=== PATIENT | female | born 1950 | race Caucasian/White ===

== ENCOUNTER 2019-11-27 11:01 | Outpatient (CLI) | payer MEDICARE, SELFPAY ==
--- NOTE | ~2019-11-27 | MM_ITS ---
EXAMINATION: MM screening [facility] BI w kareem HISTORY: Screening mammogram TECHNIQUE: Craniocaudal and mediolateral oblique 3-D tomosynthesis images were obtained and synthetic 2-D images were generated. CAD analysis was submitted and interpreted. COMPARISON: Comparison to multiple prior studies sequentially, with oldest reviewed study dated 08/02. BREAST PARENCHYMAL COMPOSITION: There are scattered areas of fibroglandular density. FINDINGS: There is no evidence of suspicious mass, calcification, or architectural distortion to sugg est malignancy in either breast. There has been no suspicious interval change. IMPRESSION: 1. No mammographic evidence of malignancy. 2. Recommend routine screening mammography in one year. BI-RADS Category 1: Negative Reviewed, dictated and finalized at location A. IFIED GENETIC COUNSELOR
== END 2019-11-27 11:02 | disposition home or self-care (01) ==
PROVIDERS: PCP Internal Medicine; Visit Provider Internal Medicine
DX: Z12.31 Encounter for screening mammogram for malignant neoplasm of breast (principal)
CPT/HCPCS: 77063; 77067

== ENCOUNTER 2019-11-30 08:38 | Outpatient (CLI) | payer MEDICARE, SELFPAY ==
[2019-11-30 09:10] LABS: Alanine Aminotransferase 22 U/L (4-35); Albumin Level 4.8 g/dL (3.5-5.1); Alkaline Phosphatase 116 U/L (38-126); Aspartate Amino Transferase 29 U/L (14-36); Bilirubin,Total 0.4 mg/dL (0.2-1.3); Blood Urea Nitrogen 16 mg/dL (7-17); Calcium 9.9 mg/dL (8.4-10.2); Carbon Dioxide 30 mmol/L (22-30); Chloride 90 mmol/L (98-107); Cholesterol 146 mg/dL (0-200); Estimated Glomerular Filt Rate > 60; Glucose 104 mg/dL (65-105); HDL Direct 51 mg/dL; Potassium 4.1 mmol/L (3.4-5.0); Sodium 134 mmol/L (137-145); Triglycerides 156 mg/dL (<150)
[2019-11-30 09:20] LABS: LDL Cholesterol Direct 68 mg/dL
== END 2019-11-30 08:39 | disposition home or self-care (01) ==
PROVIDERS: PCP Internal Medicine; Visit Provider Internal Medicine
DX: Z51.81 Encounter for therapeutic drug level monitoring (principal); E78.2 Mixed hyperlipidemia; I10 Essential (primary) hypertension
CPT/HCPCS: 36415; 80053; 80061

== ENCOUNTER 2020-05-27 08:35 | Outpatient (CLI) | payer MEDICARE, SELFPAY ==
[2020-05-27 09:39] LABS: Alanine Aminotransferase 15 U/L (4-35); Albumin Level 4.7 g/dL (3.5-5.1); Alkaline Phosphatase 108 U/L (38-126); Anion Gap 8 mmol/L (8-16); Aspartate Amino Transferase 24 U/L (14-36); Bilirubin,Total 0.5 mg/dL (0.2-1.3); Blood Urea Nitrogen 12 mg/dL (7-17); Calcium 9.6 mg/dL (8.4-10.2); Carbon Dioxide 30 mmol/L (22-30); Chloride 93 mmol/L (98-107); Cholesterol 133 mg/dL (0-200); Estimated Glomerular Filt Rate > 60; Glucose 102 mg/dL (65-105); HDL Direct 48 mg/dL; Potassium 4.3 mmol/L (3.4-5.0); Sodium 131 mmol/L (137-145); Triglycerides 123 mg/dL (<150)
[2020-05-27 09:50] LABS: LDL Cholesterol Direct 63 mg/dL
[2020-05-27 10:06] LABS: Hemoglobin A1C 6.2 % (<5.7)
[2020-05-27 10:09] LABS: Thyroid Stimulating Hormone 0.261 uIU/mL (0.465-4.680)
[2020-05-27 11:04] LABS: Vitamin D 25 Hydroxy 42.3 ng/mL
== END 2020-05-27 08:36 | disposition home or self-care (01) ==
PROVIDERS: PCP Internal Medicine; Visit Provider Nurse Practitioner
DX: R73.02 Impaired glucose tolerance (oral) (principal); E78.5 Hyperlipidemia, unspecified; E05.90 Thyrotoxicosis, unspecified without thyrotoxic crisis or storm; E55.9 Vitamin D deficiency, unspecified
CPT/HCPCS: 36415; 80053; 80061; 82306; 83036; 84443

== ENCOUNTER 2020-08-03 01:10 | Outpatient (CLI) | payer MEDICARE, SELFPAY ==
[2020-08-03 19:58] LABS: SARS-CoV-2 RNA PCR Negative
== END 2020-08-03 01:11 | disposition home or self-care (01) ==
LOC: ANHCOVIDDT 01:11
PROVIDERS: PCP Internal Medicine; Visit Provider Internal Medicine Gastroenterology
DX: Z01.812 Encounter for preprocedural laboratory examination (principal); Z20.828 Contact with and (suspected) exposure to other viral communicable diseases
CPT/HCPCS: 87635; C9803; U0003

== ENCOUNTER 2020-08-05 03:22 | Day surgery (SDC) | payer MEDICARE, SELFPAY ==
[2020-07-29 12:51] VITALS: BMI 23.4
[2020-08-05 08:05] VITALS: BP 181/68; PULSE 83; RESP 18; TEMP 36.9; O2SAT 95; BMI 22.4
[2020-08-05] MEDS: LACTATED RINGERS 1,000 ML 150 ML IV CONT (08:17)
--- NOTE | 2020-08-05 08:34 | WPDANESEPPF ---
Anes - Initial Pre Proc Eval Procedure: Operation Date: 08/05/20 09:00 Proposed Procedures p Colonoscopy - Dionisio Richter MD Date/Time: 08/05/20 08:34 Surgeon: Dionisio Richter MD Pre Op Diagnosis: Positive [place] Patient Data Age: 70 Gender: F Height: 5 ft 8 in Weight: 66.8 kg Last Vital Signs Temp 36.9 C 08/05/20 08:05 Pulse 83 08/05/20 08:05 Resp 18 08/05/20 08:05 BP 181/68 H 08/05/20 08:05 Pulse Ox 95 08/05/20 08:05 Allergies Allergy/AdvReac Type Severity Reaction Status Date / Time No Known Allergies Allergy Verified 08/05/20 08:02 Home Medications Medication Instructions Recorded Confirmed Type aspirin 325 mg tablet 325 mg PO DAILY 11/26/19 08/05/20 History multivitamin 1 tablet PO DAILY 11/26/19 08/05/20 History atorvastatin 10 mg tablet 10 mg PO DAILY #90 tablet 03/03/20 08/05/20 Rx diltiazem HCl 240 mg 240 mg PO DAILY #90 cap 05/28/20 08/05/20 Rx capsule,extended release 24 hr, controlled irbesartan 300 mg tablet 300 mg PO DAILY #90 tablet 06/09/20 08/05/20 Rx Patient hx anesthesia problems: none Family hx anesthesia problems: none PMFSH Past Medical History Medical History History of cardioversion Impaired glucose tolerance Mixed hyperlipidemia Other fecal abnormalities Unspecified atrial fibrillation Surgical History Surgical History S/P sclerotherapy of varicose veins Family History Family History Father Hypertension Family history of heart disease in male family member before age 55 Patient's father is Family history of cardiovascular disease Mother Hypertension Family history of diabetes mellitus in first degree relative Diabetes mellitus Sibling Patient's sister is in good health Patient's brother is in good health Social History Social History Smoking packs per day: 0.5 Smoking cigarettes per day: 10.0 Years smoked: 25 Smoking pack-years: 12.50 Smoking status: Former smoker Tobacco type: cigarettes Alcohol intake: never Substance use type: does not use Living arrangements: alone Spiritual care concerns: No Anes - Eval Final PreProcedure Day of Procedure 08/05/20 08:34 Patient weight: normal Heart: regular rate and rhythm Lungs: decreased breath sounds Airway: Mallampati scale class II Neurological: alert and oriented Last oral intake: >/= 8 hours ASA classification: III Emergent: no Anesthetic plan: proceed Anesthesia type and monitoring: general and standard monitoring Informed Consent: The patient's anesthetic plan and its attendant risks and benefits were discussed with the patient/family/POA. Questions were solicited and answers provided to the satisfaction of the patient/family/POA.
--- NOTE | 2020-08-05 08:51 | WPDGICN ---
Assessment and Plan Assessment and plan (1) Positive colorectal cancer screening using Cologuard test: Code(s): R19.5 - Other fecal abnormalities Status: Acute Assessment and Plan: Patient recently found to have positive screening cologuard test. For this reason colonoscopy will be performed. Patient does report a 12-15 lb weight loss recently. With no specific reason identified. Further recommendations will be given after colonoscopy. GI Consult Note Consult date/time: 08/05/20 08:51 HPI: Priscilla Mccollum is a 70 year old female Seen in evaluation at the request of Dr Bhupinder Mckinney. patient recently was found to have a positive screening colo guard test. She states that her appetite bowel movements are all normal. She reports a 12-15 lb weight loss over recent months. She states she has a good appetite. Has had no change in her bowel habits. She denies any bleeding. Her family history is noncontributory. [facility] Past Medical History Medical History History of cardioversion Impaired glucose tolerance Mixed hyperlipidemia Other fecal abnormalities Unspecified atrial fibrillation Surgical History Surgical History S/P sclerotherapy of varicose veins Family History Family History Father Hypertension Family history of heart disease in male family member before age 55 Patient's father is Family history of cardiovascular disease Mother Hypertension Family history of diabetes mellitus in first degree relative Diabetes mellitus Sibling Patient's sister is in good health Patient's brother is in good health Social History Social History Smoking packs per day: 0.5 Smoking cigarettes per day: 10.0 Years smoked: 25 Smoking pack-years: 12.50 Smoking status: Former smoker Tobacco type: cigarettes Alcohol intake: never Substance use type: does not use Living arrangements: alone Spiritual care concerns: No Meds Home Medications and Allergies Home Medications Medication Instructions Recorded Confirmed Type aspirin 325 mg tablet 325 mg PO DAILY 11/26/19 08/05/20 History multivitamin 1 tablet PO DAILY 11/26/19 08/05/20 History atorvastatin 10 mg tablet 10 mg PO DAILY #90 tablet 03/03/20 08/05/20 Rx diltiazem HCl 240 mg 240 mg PO DAILY #90 cap 05/28/20 08/05/20 Rx capsule,extended release 24 hr, controlled irbesartan 300 mg tablet 300 mg PO DAILY #90 tablet 06/09/20 08/05/20 Rx Allergies Allergy/AdvReac Type Severity Reaction Status Date / Time No Known Allergies Allergy Verified 08/05/20 08:02 Vital Signs Vital Signs - 24 hr 08/05/20 08:05 Temperature 98.5 F Pulse Rate 83 Respiratory Rate 18 Blood Pressure 181/68 H Pulse Oximetry 95 Exam Narrative: Exam Narrative: Physical exam reveals patient to be alert. Vital signs stable. HEENT exam unremarkable. Lungs are clear to auscultation and percussion. Heart is without murmur or extra sounds. Abdominal exam bowel sounds are present soft nontender with no organomegaly. Digital external rectal exam is normal.
[2020-08-05 09:43] VITALS: BP 133/65; PULSE 86; RESP 17; O2SAT 98
[2020-08-05 09:53] VITALS: BP 144/72; PULSE 77; RESP 19; O2SAT 99
[2020-08-05 10:03] VITALS: BP 150/74; PULSE 67; RESP 15; O2SAT 100
== END 2020-08-05 10:25 | disposition home or self-care (01) ==
PROVIDERS: PCP Internal Medicine; Visit Provider Internal Medicine Gastroenterology
PROC: 0DJD8ZZ Inspection of Lower Intestinal Tract, Via Natural or Artificial Opening Endoscopic (ICD-10-PCS; CPT 45378; principal; 2020-08-05 09:00)
DX: R19.5 Other fecal abnormalities (principal); R63.4 Abnormal weight loss; K64.8 Other hemorrhoids; K57.30 Diverticulosis of large intestine without perforation or abscess without bleeding; E78.2 Mixed hyperlipidemia; I48.91 Unspecified atrial fibrillation; Z87.891 Personal history of nicotine dependence; Z79.82 Long term (current) use of aspirin
CPT/HCPCS: 45378; J2704; J7120

== ENCOUNTER 2020-10-08 08:37 | Outpatient (CLI) | payer MEDICARE, SELFPAY ==
[2020-10-08 09:15] LABS: Alanine Aminotransferase 16 U/L (4-35); Albumin Level 4.4 g/dL (3.5-5.1); Alkaline Phosphatase 112 U/L (38-126); Anion Gap 7 mmol/L (8-16); Aspartate Amino Transferase 26 U/L (14-36); Bilirubin,Total 0.4 mg/dL (0.2-1.3); Blood Urea Nitrogen 15 mg/dL (7-17); Calcium 9.7 mg/dL (8.4-10.2); Carbon Dioxide 29 mmol/L (22-30); Chloride 98 mmol/L (98-107); Cholesterol 145 mg/dL (0-200); Estimated Glomerular Filt Rate > 60; Glucose 115 mg/dL (65-105); HDL Direct 63 mg/dL; Sodium 134 mmol/L (137-145); Triglycerides 117 mg/dL (<150)
[2020-10-08 09:26] LABS: LDL Cholesterol Direct 51 mg/dL
[2020-10-08 09:30] LABS: Hemoglobin A1C 5.8 % (<5.7)
[2020-10-08 09:45] LABS: Thyroid Stimulating Hormone 0.475 uIU/mL (0.465-4.680)
[2020-10-08 10:20] LABS: Vitamin D 25 Hydroxy 41.7 ng/mL
== END 2020-10-08 08:38 | disposition home or self-care (01) ==
LOC: ANHLAB 08:38
PROVIDERS: PCP Internal Medicine; Visit Provider Internal Medicine
DX: E78.5 Hyperlipidemia, unspecified (principal); R73.02 Impaired glucose tolerance (oral); E55.9 Vitamin D deficiency, unspecified; I10 Essential (primary) hypertension; E05.90 Thyrotoxicosis, unspecified without thyrotoxic crisis or storm
CPT/HCPCS: 36415; 80053; 80061; 82306; 83036; 84443

== ENCOUNTER 2020-12-07 08:25 | Outpatient (CLI) | payer MEDICARE, SELFPAY | END 2020-12-07 08:26 | disposition home or self-care (01) | LOC: ANHCOVIDVC 08:26 | PROVIDERS: PCP Internal Medicine | DX: Z23 Encounter for immunization (principal) | CPT/HCPCS: 0001A; 91300 ==

== ENCOUNTER 2020-12-28 08:30 | Outpatient (CLI) | payer MEDICARE, SELFPAY | END 2020-12-28 08:31 | disposition home or self-care (01) | LOC: ANHCOVIDVC 08:30 | PROVIDERS: PCP Internal Medicine | DX: Z23 Encounter for immunization (principal) | CPT/HCPCS: 0002A; 91300 ==

== ENCOUNTER 2021-02-05 08:51 | Outpatient (CLI) | payer MEDICARE, SELFPAY ==
--- NOTE | ~2021-02-05 | MM_ITS ---
EXAMINATION: MM screening [facility] BI w kareem HISTORY: Screening TECHNIQUE: Craniocaudal and mediolateral oblique 3-D tomosynthesis images were obtained and synthetic 2-D images were generated. CAD analysis was submitted and interpreted. COMPARISON: Comparison to multiple prior studies sequentially, with oldest reviewed study dated 08/02. BREAST PARENCHYMAL COMPOSITION: There are scattered areas of fibroglandular density. FINDINGS: There is no evidence of suspicious mass, calcification, or architectural distortion to sugg est malignancy in either breast. There has been no suspicious interval change. IMPRESSION: 1. No mammographic evidence of malignancy. 2. Recommend routine screening mammography in one year. BI-RADS Category 1: Negative Reviewed, dictated and finalized at location A.
== END 2021-02-05 08:52 | disposition home or self-care (01) ==
LOC: ANHIMG 08:54
PROVIDERS: PCP Internal Medicine; Visit Provider Internal Medicine
DX: Z12.31 Encounter for screening mammogram for malignant neoplasm of breast (principal)
CPT/HCPCS: 77063; 77067

== ENCOUNTER 2021-03-31 08:43 | Outpatient (CLI) | payer MEDICARE, SELFPAY ==
[2021-03-31 09:14] LABS: Alanine Aminotransferase 16 U/L (4-35); Albumin Level 4.8 g/dL (3.5-5.1); Alkaline Phosphatase 112 U/L (38-126); Anion Gap 10 mmol/L (8-16); Aspartate Amino Transferase 27 U/L (14-36); Bilirubin,Total 0.4 mg/dL (0.2-1.3); Blood Urea Nitrogen 13 mg/dL (7-17); Calcium 9.9 mg/dL (8.4-10.2); Carbon Dioxide 27 mmol/L (22-30); Chloride 100 mmol/L (98-107); Cholesterol 145 mg/dL (0-200); Estimated Glomerular Filt Rate > 60; Glucose 102 mg/dL (65-105); HDL Direct 56 mg/dL; Potassium 4.2 mmol/L (3.4-5.0); Sodium 137 mmol/L (137-145); Triglycerides 114 mg/dL (<150)
[2021-03-31 09:26] LABS: LDL Cholesterol Direct 60 mg/dL
[2021-03-31 09:43] LABS: Thyroid Stimulating Hormone 0.363 uIU/mL (0.465-4.680)
[2021-03-31 10:47] LABS: Hemoglobin A1C 5.9 % (<5.7)
[2021-03-31 10:53] LABS: Vitamin D 25 Hydroxy 40.2 ng/mL
== END 2021-03-31 08:44 | disposition home or self-care (01) ==
LOC: ANHLAB 08:46
PROVIDERS: PCP Internal Medicine; Visit Provider Nurse Practitioner
DX: R73.02 Impaired glucose tolerance (oral) (principal); E78.5 Hyperlipidemia, unspecified; E55.9 Vitamin D deficiency, unspecified; E05.90 Thyrotoxicosis, unspecified without thyrotoxic crisis or storm
CPT/HCPCS: 36415; 80053; 80061; 82306; 83036; 84443

== ENCOUNTER 2021-10-06 08:40 | Outpatient (CLI) | payer MEDICARE, SELFPAY ==
[2021-10-06 09:15] LABS: Alanine Aminotransferase 18 U/L (4-35); Albumin Level 4.6 g/dL (3.5-5.1); Alkaline Phosphatase 125 U/L (38-126); Anion Gap 9 mmol/L (8-16); Aspartate Amino Transferase 27 U/L (14-36); Bilirubin,Total 0.6 mg/dL (0.2-1.3); Blood Urea Nitrogen 16 mg/dL (7-17); Calcium 9.8 mg/dL (8.4-10.2); Carbon Dioxide 28 mmol/L (22-30); Chloride 98 mmol/L (98-107); Cholesterol 157 mg/dL (0-200); Estimated Glomerular Filt Rate > 60; Glucose 115 mg/dL (65-110); HDL Direct 54 mg/dL; Potassium 4.3 mmol/L (3.4-5.0); Sodium 135 mmol/L (137-145); Triglycerides 157 mg/dL (<150)
[2021-10-06 09:26] LABS: LDL Cholesterol Direct 65 mg/dL
== END 2021-10-06 08:41 | disposition home or self-care (01) ==
PROVIDERS: PCP Internal Medicine; Visit Provider Nurse Practitioner
DX: E78.5 Hyperlipidemia, unspecified (principal)
CPT/HCPCS: 36415; 80053; 80061

== ENCOUNTER 2022-03-17 08:54 | Outpatient (CLI) | payer MEDICARE, SELFPAY ==
--- NOTE | ~2022-03-17 | DEXA_ITS ---
Bone Density Report Name: JESSICA KNAPP Age: 71 Sex: Female Ethnicity: White Date of : 1950 Indication: postmenopausal; screening for osteoporosis; height loss; rheumatoid arthritis; Referring Provider: DIGNA MONK Study: Bone densitometry was performed. Exam Date: March 17, 2022 Accession number: [id number] Bone Density: Region BMD T-score Z-score Classification AP Spine(L1-L4) 1.125 0.7 3.0 Normal Femoral Neck (Left) 0.746 -0.9 1.1 Normal Total Hip (Left) 0.748 -1.6 0.1 Osteopenia Femoral Neck (Right) 0.890 0.4 2.4 Normal Total Hip (Right) 0.829 -0.9 0.8 Normal Total Hip Mean 0.789 -1.3 0.5 Osteopenia World Health Organization criteria for BMD impression classify patients as: Normal (T-score at or above -1.0), Osteopenia (T-score between -1.0 and -2.5), or Osteoporosis (T-score at or below -2.5). 10-year Fracture Risk(1): Major Osteoporotic Fracture 12% Hip Fracture 1.7% Reported Risk Factors: [place] (), Neck BMD=0.746, BMI=26.5, rheumatoid arthritis (1) FRAX(R) Version 3.08. Fracture probability calculated for an untreated patient. Fracture probability may be lower if the patient has received treatment. Clinical Information Provided by Patient: Has rheumatoid arthritis Has used the following medications: Vitamin D, Calcium Patient maximum height was 68 Menopause Age: 45 Onset of menses at age 9 Number of children 0 Impression: The patient has low bone mass, based on the Left Total Hip T-score. The patient has an estimated ten-year risk of hip fracture of 1.7% and an estimated ten-year risk of major fracture of 12%, based on the WHO FRAX algorithm. Discussion: BONE DENSITY IS LOW AT ONE OR MORE SKELETAL SITES. This patient's lowest T-score is low at one or more skeletal sites. It meets the World Health Organization's (WHO) criteria for ?low bone mass? (T-score between -1.0 and -2.5). The patient's 10-year risk of fracture as calculated by FRAX is less than the threshold where pharmacological therapy is recommended by the National Osteoporosis Foundation (NOF). However, all treatment decisions require clinical judgment and consideration of individual patient factors, including patient preferences, comorbidities, previous drug use, risk factors not captured in the FRAX model (e.g., frailty, falls, vitamin D deficiency, increased bone turnover, interval significant decline in bone density) and possible under or overestimation of fracture risk by FRAX. The patient should follow a healthful lifestyle (good nutrition with adequate calcium and vitamin D, and appropriate weight-bearing exercise). Follow-Up: Consider repeating this study in 2 to 3 years to reassess this patient's status, or sooner if there is some new clinical indication. Repo
--- NOTE | ~2022-03-17 | MM_ITS ---
EXAMINATION: MM screening [facility] BI w kareem HISTORY: Screening TECHNIQUE: Craniocaudal and mediolateral oblique 3-D tomosynthesis images were obtained and synthetic 2-D images were generated. CAD analysis was submitted and interpreted. COMPARISON: Comparison to multiple prior studies sequentially, with oldest reviewed study dated 08/02. BREAST PARENCHYMAL COMPOSITION: There are scattered areas of fibroglandular density. FINDINGS: There is no evidence of suspicious mass, calcification, or architectural distortion to sugg est malignancy in either breast. There has been no suspicious interval change. IMPRESSION: 1. No mammographic evidence of malignancy. 2. Recommend routine screening mammography in one year. BI-RADS Category 1: Negative Reviewed, dictated and finalized at location A.
== END 2022-03-17 08:55 | disposition home or self-care (01) ==
PROVIDERS: PCP Internal Medicine; Visit Provider Nurse Practitioner
DX: Z12.31 Encounter for screening mammogram for malignant neoplasm of breast (principal); Z78.0 Asymptomatic menopausal state; M85.852 Other specified disorders of bone density and structure, left thigh
CPT/HCPCS: 77063; 77067; 77080

== ENCOUNTER 2022-05-23 08:53 | Outpatient (CLI) | payer MEDICARE, SELFPAY ==
[2022-05-23 09:36] LABS: Alanine Aminotransferase 16 U/L (6-35); Albumin Level 4.9 g/dL (3.5-5.1); Alkaline Phosphatase 105 U/L (38-126); Anion Gap 7 mmol/L (8-16); Aspartate Amino Transferase 27 U/L (14-36); Bilirubin,Total 0.4 mg/dL (0.2-1.3); Blood Urea Nitrogen 16 mg/dL (7-17); Calcium 9.3 mg/dL (8.4-10.2); Carbon Dioxide 31 mmol/L (22-30); Chloride 97 mmol/L (98-107); Cholesterol 143 mg/dL (0-200); Estimated Glomerular Filt Rate > 60; Glucose 110 mg/dL (65-110); HDL Direct 48 mg/dL; Potassium 4.5 mmol/L (3.4-5.0); Sodium 135 mmol/L (137-145); Triglycerides 141 mg/dL (<150)
[2022-05-23 09:47] LABS: LDL Cholesterol Direct 53 mg/dL
[2022-05-23 10:03] LABS: Thyroid Stimulating Hormone 0.273 uIU/mL (0.465-4.680)
[2022-05-23 10:21] LABS: Vitamin D 25 Hydroxy 34.7 ng/mL
== END 2022-05-23 08:54 | disposition home or self-care (01) ==
PROVIDERS: PCP Internal Medicine; Visit Provider Nurse Practitioner
DX: R73.02 Impaired glucose tolerance (oral) (principal); E78.5 Hyperlipidemia, unspecified; R79.89 Other specified abnormal findings of blood chemistry; E55.9 Vitamin D deficiency, unspecified
CPT/HCPCS: 36415; 80053; 80061; 82306; 84443

== ENCOUNTER 2022-11-28 08:57 | Outpatient (CLI) | payer MEDICARE, SELFPAY ==
[2022-11-28 09:37] LABS: Alanine Aminotransferase 19 U/L (6-35); Albumin Level 4.9 g/dL (3.5-5.1); Alkaline Phosphatase 112 U/L (38-126); Anion Gap 5 mmol/L (8-16); Aspartate Amino Transferase 28 U/L (14-36); Bilirubin,Total 0.5 mg/dL (0.2-1.3); Blood Urea Nitrogen 18 mg/dL (7-17); Calcium 9.8 mg/dL (8.4-10.2); Carbon Dioxide 29 mmol/L (22-30); Chloride 96 mmol/L (98-107); Cholesterol 164 mg/dL (0-200); Estimated Glomerular Filt Rate > 60; Glucose 105 mg/dL (65-110); HDL Direct 60 mg/dL; Sodium 130 mmol/L (137-145); Triglycerides 161 mg/dL (<150)
[2022-11-28 09:48] LABS: LDL Cholesterol Direct 60 mg/dL
[2022-11-28 09:53] LABS: Vitamin D 25 Hydroxy 46.1 ng/mL
[2022-11-28 10:10] LABS: Thyroid Stimulating Hormone 0.306 uIU/mL (0.465-4.680)
[2022-11-28 16:59] LABS: Hemoglobin A1C 6.1 % (<5.7)
== END 2022-11-28 08:58 | disposition home or self-care (01) ==
PROVIDERS: Internal Medicine; PCP Internal Medicine; Visit Provider Internal Medicine
DX: E78.5 Hyperlipidemia, unspecified (principal); I10 Essential (primary) hypertension; E03.9 Hypothyroidism, unspecified; E55.9 Vitamin D deficiency, unspecified; R73.02 Impaired glucose tolerance (oral)
CPT/HCPCS: 36415; 80053; 80061; 82306; 83036; 84443

== ENCOUNTER 2023-06-07 09:39 | Outpatient (CLI) | payer MEDICARE, SELFPAY ==
[2023-06-07 10:27] LABS: Alanine Aminotransferase 18 U/L (6-35); Albumin Level 4.6 g/dL (3.5-5.1); Alkaline Phosphatase 100 U/L (38-126); Anion Gap 9 mmol/L (8-16); Aspartate Amino Transferase 26 U/L (14-36); Bilirubin,Total 0.6 mg/dL (0.2-1.3); Blood Urea Nitrogen 14 mg/dL (7-17); Calcium 9.4 mg/dL (8.4-10.2); Carbon Dioxide 28 mmol/L (22-30); Chloride 97 mmol/L (98-107); Cholesterol 153 mg/dL (0-200); Estimated Glomerular Filt Rate > 60; Glucose 103 mg/dL (65-110); HDL Direct 56 mg/dL; Potassium 4.3 mmol/L (3.4-5.0); Sodium 134 mmol/L (137-145); Triglycerides 130 mg/dL (<150)
[2023-06-07 10:38] LABS: LDL Cholesterol Direct 73 mg/dL
[2023-06-07 10:48] LABS: Hemoglobin A1C 5.9 % (<5.7)
[2023-06-07 10:56] LABS: Thyroid Stimulating Hormone 0.207 uIU/mL (0.465-4.680)
[2023-06-07 11:17] LABS: Free T4 Free Thyroxine 1.25 ng/mL (0.78-2.19)
== END 2023-06-07 09:40 | disposition home or self-care (01) ==
PROVIDERS: PCP Internal Medicine; Visit Provider Nurse Practitioner
DX: E05.90 Thyrotoxicosis, unspecified without thyrotoxic crisis or storm (principal); E78.5 Hyperlipidemia, unspecified; R73.02 Impaired glucose tolerance (oral)
CPT/HCPCS: 36415; 80053; 80061; 83036; 84439; 84443

== ENCOUNTER 2023-07-17 08:28 | Outpatient (CLI) | payer MEDICARE, SELFPAY ==
--- NOTE | ~2023-07-17 | MM_ITS ---
EXAMINATION: MM screening [facility] BI w kareem HISTORY: Screening TECHNIQUE: Craniocaudal and mediolateral oblique 3-D tomosynthesis images were obtained and synthetic 2-D images were generated. CAD analysis was submitted and interpreted. COMPARISON: Comparison to multiple prior studies sequentially, with oldest reviewed study dated 10/2015. BREAST PARENCHYMAL COMPOSITION: There are scattered areas of fibroglandular density. FINDINGS: There is a new focal asymmetry superiorly in the right breast on MLO view. The left breast is stable without evidence for malignancy. IMPRESSION: 1. New right breast asymmetry superiorly on MLO view. 2. Additional mammographic views and possible breast ultrasound are recommended. BI-RADS Category 0: Incomplete: Needs additional imaging evaluation. Reviewed, dictated and finalized at location A. IMPRESSION: 1. New right breast asymmetry superiorly on MLO view. 2. Additional mammographic views and possible breast ultrasound are recommended . BI-RADS Category 0: Incomplete: Needs additional imaging evaluation.
== END 2023-07-17 08:29 | disposition home or self-care (01) ==
LOC: ANHIMG 08:31
PROVIDERS: PCP Family Medicine; Visit Provider Family Medicine
DX: Z12.31 Encounter for screening mammogram for malignant neoplasm of breast (principal); R92.8 Other abnormal and inconclusive findings on diagnostic imaging of breast
CPT/HCPCS: 77063; 77067

== ENCOUNTER 2023-09-12 10:19 | Outpatient (CLI) | payer MEDICARE, SELFPAY ==
--- NOTE | ~2023-09-12 | MMUS_ITS ---
EXAMINATION: MM diagnostic [facility] RT w kareem, US breast RT limited HISTORY: Follow-up right breast asymmetries TECHNIQUE: Additional 3-D tomosynthesis images of the right breast were performed and synthetic 2-D i mages were generated. CAD analysis was submitted and interpreted. High resolution Limited right breas t ultrasound was performed. COMPARISON: Comparison to multiple prior studies sequentially, with oldest reviewed study dated 11/2017. BREAST PARENCHYMAL COMPOSITION: Breast composed of scattered areas of fibroglandular density FINDINGS: MAMMOGRAPHIC FINDINGS: There is a focal 5 mm mass in the upper outer quadrant of the right breast, middle third with spicula jessenia margins. There is persistent asymmetry in the upper outer quadrant of the right breast anteriorly , although no discrete mass identified. ULTRASOUND: Limited right breast ultrasound: At 10:00, 3 cm from the nipple there is an irregular shaped hypoecho ic mass with antiparallel configuration, posterior shadowing and no internal vascularity. This mass m easures approximately 7 mm transversely. No definite mass is identified corresponding to the smaller 5 mm lesion, likely located more posteriorly. IMPRESSION: 1. Ultrasound-guided biopsy of right breast mass located at 10:00, 3 cm from the nipple is recommende d. Correlation with post biopsy marker is recommended with respect to the smaller nodule seen on mamm ography. If this nodule does not correspond to the biopsy marker, follow-up stereotactic biopsy of th is lesion recommended. BI-RADS CATEGORY 4-SUSPICIOUS ABNORMALITY Reviewed, dictated and finalized at location A. HAULER IMPRESSION: 1. Ultrasound-guided biopsy of right breast mass located at 10:00, 3 cm from th e nipple is recommended. Correlation with post biopsy marker is recommended wit h respect to the smaller nodule seen on mammography. If this nodule does not co rrespond to the biopsy marker, follow-up stereotactic biopsy of this lesion rec ommended. BI-RADS CATEGORY 4-SUSPICIOUS ABNORMALITY
== END 2023-09-12 10:20 | disposition home or self-care (01) ==
PROVIDERS: PCP Family Medicine; Visit Provider Family Medicine
DX: N64.89 Other specified disorders of breast (principal); R92.8 Other abnormal and inconclusive findings on diagnostic imaging of breast
CPT/HCPCS: 76642; 77061; 77065; G0279

== ENCOUNTER 2023-10-10 09:31 | Outpatient (CLI) | payer MEDICARE, SELFPAY ==
--- NOTE | ~2023-10-10 | MMUS_ITS ---
EXAMINATION: US breast biopsy RT w image, MM post biopsy invasive RT DATE: 10/10/2023 11:32 (accession [id number]), 10/10/2023 11:26 (accession [id number]) INDICATION: Indeterminate mass in the upper outer quadrant of the right breast. Ultrasound-guided cor e biopsy is requested to evaluate for malignancy. TECHNIQUE AND FINDINGS: With real-time scanning, it was felt that the sonographic finding at the 10:00 location, 3 cm from th e nipple described on recent diagnostic evaluation did not correlate with the mammographic finding in question. Additional scanning in the upper outer quadrant of the breast revealed a 4 mm isoechoic, n ot parallel mass with irregular margins and posterior acoustic shadowing and 10:30 location, 6 cm fro m the nipple. This was felt to the mammographic finding and biopsy of this mass was performed. The ri sks and potential benefits of the procedure were discussed with the patient including bleeding and in fection. A time out was performed. The skin of the right breast was prepared and draped in usual ster ile fashion. 1% lidocaine was used for superficial anesthesia. 1% lidocaine with epinephrine was used for deep anesthesia. A vacuum-assisted biopsy needle was advanced through to the outer edge of the region of interest from an inferolateral approach utilizing sonographic guidance. A total of five tissue core samples were o btained through the lesion. A tissue marker clip was then placed at the biopsy site. Hemostasis was a chieved. A sterile bandage was applied. The patient tolerated procedure well and there was no evidence of immediate complication. The patient was given verbal instructions to return to the Emergency Department in the event of severe breast pa in or rapid breast enlargement. A two view right breast mammogram was obtained to document tissue mar ker clip placement. IMPRESSION: 1. Successful ultrasound-guided vacuum-assisted biopsy of right breast mass with tissue marker placem ent. Reviewed, dictated and finalized at location A. IC MESSAGE SERVICE SUPERVISOR IMPRESSION: 1. Successful ultrasound-guided vacuum-assisted biopsy of right breast mass wit h tissue marker placement.
== END 2023-10-10 09:32 | disposition home or self-care (01) ==
PROVIDERS: PCP Family Medicine; Visit Provider Surgery
DX: N63.10 Unspecified lump in the right breast, unspecified quadrant (principal); R92.8 Other abnormal and inconclusive findings on diagnostic imaging of breast
CPT/HCPCS: 19083; 88305; 88342; 88365; A4648

== ENCOUNTER 2023-11-06 09:33 | Outpatient (CLI) | payer MEDICARE, SELFPAY ==
--- NOTE | ~2023-11-06 | MR_ITS ---
EXAMINATION: MR breast BI wo/w con INDICATION: Right breast cancer TECHNIQUE: Axial VIBRANT pre and dynamic post contrast, Sagittal VIBRANT post contrast, Axial T2 STIR ASSET COMPARISON: Mammograms dated 07/17/2023, 03/17/2022, 02/05/2021, and 11/27/2019 CONTRAST: Multihance, 14 cc BREAST COMPOSITION: Scattered fibroglandular tissue FINDINGS: RIGHT BREAST: There is minimal background parenchymal enhancement. Biopsy changes are noted in the th ird of the upper-outer quadrant of the breast. No abnormal enhancement is present after contrast admi nistration. No pathologically enlarged axillary or internal mammary lymph nodes are identified. LEFT BREAST: There is minimal background parenchymal enhancement. No suspicious left breast mass is i dentified. Masses measuring 5 mm mass in the middle third of the lower inner breast at the 7:00 locat ion and 8 mm in the middle third of the outer breast at the 3:00 location corresponding to mammograph ically stable findings and are consistent with intramammary lymph nodes. No pathologically enlarged a xillary or internal mammary lymph nodes are identified. IMPRESSION: 1. Biopsy changes in the upper outer quadrant of the right breast without additional suspicious govind s in either breast. BI-RADS category 6, known biopsy-proven malignancy. Reviewed, dictated and finalized at location A. ISION ASSEMBLER IMPRESSION: 1. Biopsy changes in the upper outer quadrant of the right breast without addit ional suspicious masses in either breast. BI-RADS category 6, known biopsy-proven malignancy.
== END 2023-11-06 09:34 | disposition home or self-care (01) ==
LOC: ANHIMG 09:36
PROVIDERS: PCP Family Medicine; Visit Provider Internal Medicine Hematology & Oncology
DX: C50.411 Malignant neoplasm of upper-outer quadrant of right female breast (principal); Z17.0 Estrogen receptor positive status [ER+]; R92.8 Other abnormal and inconclusive findings on diagnostic imaging of breast
CPT/HCPCS: 77049; A9577; C8908

== ENCOUNTER 2023-11-20 10:29 | Outpatient (CLI) | payer MEDICARE, SELFPAY ==
--- NOTE | ~2023-11-20 | MMUS_ITS ---
EXAMINATION: US_MAGSEEDRT_US, MM post biopsy invasive RT INDICATION: Right breast cancer TECHNIQUE: The procedure for a ultrasound -guided Magseed localization was discussed with the patient . Risks discussed included bleeding and infection. The patient verbalized understanding and agreed to proceed. The time out was performed to verify the patient's name, date of , and site of procedure. The s kin overlying the breast was prepared in usual fashion. Utilizing ultrasound guidance, the needle w as advanced into the right breast. Confirmation of Magseed position was achieved with ultrasound and subsequent mediolateral and craniocaudal mammogram. The patient tolerated procedure without immediate complication. FINDINGS: Ultrasound and mammographic images demonstrate deployment of the Magseed device of the biop sy-proven right breast cancer. Additional deployment of magseed device was made at 10:00, 3 cm from t he nipple. IMPRESSION: 1. Successful ultrasound-guided right breast Magseed localizations. Reviewed, dictated and finalized at location A. T CONTROL OPERATOR IMPRESSION: 1. Successful ultrasound-guided right breast Magseed localizations.
== END 2023-11-20 10:30 | disposition home or self-care (01) ==
PROVIDERS: PCP Family Medicine; Visit Provider Surgery
DX: C50.911 Malignant neoplasm of unspecified site of right female breast (principal); N63.10 Unspecified lump in the right breast, unspecified quadrant
CPT/HCPCS: 19285; A4648

== ENCOUNTER 2023-11-29 09:47 | Outpatient (CLI) | payer MEDICARE, SELFPAY ==
--- NOTE | 2023-11-29 10:07 | ECG_ITS ---
Measurements Intervals [place] Rate: 58 P: 64 [place]: 151 QRS: 69 QRSD: 92 T: 56 QT: 399 QTc: 394 Interpretive Statements SINUS BRADYCARDIA NO PREVIOUS ECG AVAILABLE FOR COMPARISON Electronically Signed On 11-29-2023 16:37:48 SETTLEMENT CLERK by Rosario Katz M.D.
== END 2023-11-29 09:48 | disposition home or self-care (01) ==
LOC: ANHSURGERY 09:50
PROVIDERS: PCP Nurse Practitioner Family; Visit Provider Surgery
DX: I10 Essential (primary) hypertension (principal); Z01.818 Encounter for other preprocedural examination
CPT/HCPCS: 93005

== ENCOUNTER 2023-12-04 01:31 | Day surgery (SDC) | payer MEDICARE, SELFPAY ==
--- NOTE | 2023-11-24 13:13 | PC.NURSE ---
Report to the Outpatient Waiting Room, entrance under the green pavilion located off [facility], at time _0900 on date 12/04/23 . Planned Procedure Time: _1100 . Time changes happen often and if your time is changed the preop area will call you the afternoon before. - You and your visitor will be asked to self-screen and do not enter if you have any COVID symptoms. - A mask is optional within the hospital at this time. Patients may have clear liquids (water, carbonated beverages, clear teas, apple juice) until 3 hours prior to surgery( 8:00 AM ) with a maximum of 20 ounces. - No food from midnight until time of surgery - Infants may have breast milk until 4 hours before surgery, formula 6 hours prior to surgery. - Children will be allowed to drink immediately following surgery. If applicable, please bring a bottle or sippy cup to assist with drinking. Juice, water, soda, and popsicles are readily available. For infants on formula, please bring formula the day of surgery. Pacifiers are allowed. Take the following medications with a SIP of water the morning of surgery: __DILTIAZEM DO NOT STOP ANY OF YOUR OTHER PRESCRIPTION MEDICATIONS PRIOR TO SURGERY ?EXCEPT THE FOLLOWING Medications to discontinue per physician _HOLD ALL VITAMINS AND SUPPLEMENTS 3 DAYS PRE OP.LAST DOSE 11/30/23_ASPIRIN PER DR US___ Please no make-up, nail malay, hairspray, perfume, deodorant, or body powder the day of surgery. No jewelry (including any body piercings) or valuables the day of surgery, leave them at home. Please take a shower or bath the night before, or the morning of, surgery with an antibacterial soap. Wear comfortable, loose fitting clothing. Children are encouraged to wear pajamas. - Jewelry must be removed prior to entering the operating room. Rings and piercings that are not removed may be cut off. - The hospital will not accept responsibility for valuables. - Please leave all valuables, including medications, at home the day of surgery. If you are going home after surgery, a licensed trencher driver must drive you home. - NO public transportation without another adult if you receive anesthesia. - We recommend that an adult stay with you for 24 hours following discharge. - We also recommend that you do not drive, make important decision, drink alcoholic beverages, or take any drugs that were not prescribed by your health care provider for at least 24 hours after your discharge time. Follow any additional instructions given to you from your surgeon. If you or anyone in your household have experienced Covid symptoms in the past week, please notify your surgeon or the nurse liaison at the phone number below for possible testing. Telephone instructions given to _PATIENT and asked if any additional questions and then verbalized understanding. Patient advised to call surgeon office or pre surgery nurse liaison [phone] if any additional questions.
[2023-11-24 13:23] VITALS: BMI 24.6
[2023-12-04] VITALS (9 sets, daily range): BP systolic 110–145; BP diastolic 45–66; PULSE 60–80; RESP 13–18; TEMP 36.1–37.4; O2SAT 95–100; BMI 24.3
--- NOTE | ~2023-12-04 | MM_ITS ---
MM_FAXITRON_MG DATE: 12/04/2023 11:45 INDICATION: Right breast lumpectomy with mag seed TECHNIQUE: Single digital mammographic exposure of breast surgical soft tissue specimen COMPARISON: November 20, 2023 postbiopsy mammogram FINDINGS: The mag seed is present within the surgical soft tissue specimen. IMPRESSION: Successful surgical excision of mag seed and adjacent soft tissues Reviewed, dictated and finalized at [facility]. Reviewed, dictated and finalized at location A. ON FACING MACHINE OPERATOR
--- NOTE | 2023-12-04 08:31 | WPDANESEPPF ---
Anes - Initial Pre Proc Eval Procedure: Operation Date: 12/04/23 11:00 Proposed Procedures p Right Breast Lumpectomy with Mag Seed Localization Times Two, Possible Adjacent Tissue Transfer - Priscilla Morales MD Date/Time: 12/04/23 08:31 Surgeon: Priscilla Morales MD Pre Op Diagnosis: right breast mass Patient Data Age: 73 Gender: F Height: 1.73 m Weight: 73.5 kg Allergies Allergy/AdvReac Type Severity Reaction Status Date / Time No Known Allergies Allergy Verified 12/04/23 10:01 Home Medications Medication Instructions Recorded Confirmed Type aspirin 325 mg tablet 325 mg PO DAILY 11/26/19 12/04/23 History multivitamin (Daily Multi-Vitamin 1 tablet PO DAILY 11/26/19 12/04/23 History tablet) psyllium seed (sugar) oral powder 1 tbsp PO PRN PRN Constipation 04/08/21 11/24/23 History (Metamucil (sugar) oral powder) calcium carbonate 600 mg calcium 600 mg PO DAILY 03/21/22 12/04/23 History (1,500 mg) tablet cholecalciferol (vitamin D3) 50 50 mcg PO DAILY 03/21/22 12/04/23 History mcg (2,000 unit) tablet atorvastatin 10 mg tablet See Rx Instructions .Route 07/27/23 11/24/23 Rx .COMPLEX #90 tabs irbesartan 300 mg tablet 300 mg PO DAILY #90 tabs 07/27/23 11/24/23 Rx diltiazem HCl 240 mg See Rx Instructions .Route 09/13/23 12/04/23 Rx capsule,extended release 24 hr, .COMPLEX #90 caps controlled (DILT-XR) triamcinolone acetonide 0.1 % 1 applic topical PRN PRN ECZEMA 11/24/23 11/24/23 History topical cream Patient hx anesthesia problems: none Family hx anesthesia problems: none Results Review: All pre-operative results and documents have been reviewed as part of the pre-operative evaluation. [facility] Past Medical History Medical History (Updated 11/24/23 @ 12:16 by Tara Yousif APRN) History of cardioversion HTN (hypertension) Mixed hyperlipidemia Other fecal abnormalities Screening for breast cancer Unspecified atrial fibrillation Surgical History Surgical History History of excision of lesion Skin lesion on 06/29/22 S/P sclerotherapy of varicose veins 2013 Family History Family History Father Hypertension Family history of heart disease in male family member before age 55 Patient's father is Family history of cardiovascular disease Mother Hypertension Family history of diabetes mellitus in first degree relative Diabetes mellitus Sibling Patient's sister is in good health Patient's brother is in good health Social History Social History (Updated 09/20/23 @ 13:42 by Sienna Spears [facility]) Smoking packs per day: 0.5 Smoking cigarettes per day: 10.0 Years smoked: 25 Smoking pack-years: 12.50 Smoking status: Former smoker Tobacco type: cigarettes Second hand tobacco smoke exposure: Yes Smoking end date: 10/02/20 Alcohol intake: never Substance use: never Substance use type: does not use Do You Feel Safe in your Home?: Yes Lack of Transportation: No Lack of Food: Never True Current Housing: I Have Housing Concerned About Future Housing: No Difficulty Paying Gas/Electric Bills: No Difficulty Paying for Meds: No Currently Unemployed: No Education: High School Diploma/GED Difficulty w/ Childcare or Family Care: No Living arrangements: alone Spiritual care concerns: No Anes - Eval Final PreProcedure Day of Procedure 12/04/23 08:31 Patient weight: normal Heart: regular rate and rhythm Lungs: clear to auscultation Airway: Mallampati scale class II Neurological: alert and oriented Last oral intake: >/= 8 hours ASA classification: III Emergent: no Anesthetic plan: proceed Anesthesia type and monitoring: general LMA and standard monitoring Results Review: All pre-operative results and documents have been reviewed as part of the pre-operative evaluation. Informed
--- NOTE | 2023-12-04 09:24 | WPDHPUPDATE1 ---
History and Physical Update Update Date/Time: 12/04/23 09:24 History and Physical has been reviewed, including an updated exam of the patient. There are NO changes in the patient's condition. Risks, benefits, and alternatives have been discussed and questions answered. Patient agrees to proceed with procedure.
[2023-12-04] MEDS: LACTATED RINGERS 1,000 ML 30 ML IV CONT ×2 (09:50→12:32)
[2023-12-04] MEDS: ACETAMINOPHEN 500 MG TABLET 1000 MG PO (09:57)
[2023-12-04] MEDS: ceFAZolin 2 GM/D5W 50 ML 2 GM/50 ML BAG IVPB (10:50)
[2023-12-04] MEDS: BUPIVACAINE/EPINEPHRINE 0.5% 30 ML VIAL 20 ML INFILTRATE (11:22)
--- NOTE | 2023-12-04 12:19 | W.PM.PROC2 ---
Procedure Note - Detailed Date of Procedure 12/04/23 Pre-op Diagnosis 1. Right breast invasive ductal carcinoma at 10:30 o'clock 6cm from the nipple. 2. Suspicious second right breast lesion 10 o'clock 3 cm from the nipple. Post-op Diagnosis Same Procedure Performed 1. Right breast lumpectomy of biopsy-proven right breast invasive ductal carcinoma at 10:30 o'clock position 6 cm (CPT 18848) 2. Excisional biopsy of suspicious right breast lesion at 10 o'clock position 3 cm from the nipple (CPT 58611) Surgeon Priscilla Morales MD Anesthesia General Indications 73-year-old female with right breast invasive ductal carcinoma, ER positive, UT negative, HER2 negative, Ki-67 11% who presents for follow-up today.? The patient underwent Mag seed placement of both the right breast biopsy proven invasive ductal carcinoma as well as the 2nd lesion that was previously a BI-RADS 4 but was downgraded to BI-RADS 3 on repeat imaging.? Patient elected to have this excised at the same time as the invasive ductal carcinoma tumor.? Risks of the surgery were again discussed with the patient which included but not limited to risk of bleeding, infection, positive margin, possible need for additional procedures in the future, recurrence, asymmetry, wound healing problems, scar, pain, as well as the risk of anesthesia.? All questions were answered patient agreed to proceed. Description of Procedure Patient was identified in the pre-operative area and brought to the OR suite. She underwent tumor localization previously by IR with magseed placement x2. She was laid supine in the operating table and sequential compression devices were applied. General anesthesia was induced without difficulties. The right chest was prepped and draped in a sterile fashion. The sentimag probe was used to identify the area where the 1st magseed was placed, located at 10:00 o'clock position 3 cm from the nipple. A curvilinear incision was made overlying this area and dissection was carried down through the subcutaneous tissue into the breast tissue. The tumor was identified with palpation and using sentimag probe, and a rim of normal breast tissue was excised along with the tumor as our lumpectomy specimen. Once the specimen was completely excised, it was oriented using surgical paint according to spooler operator automatic instructions. The specimen was placed in the faxitron and 2 radiographs were obtained and sent to Radiology for radiographic confirmation of lesion and magseed within the specimen. The specimen was then sent to pathology as a fresh specimen. Attention was again turned back to the right breast. The sentimag probe was again used to identify the 2nd lesion which was located at 10:30 o'clock position 6 cm through the same incision, and this was the biopsy-proven invasive ductal carcinoma. I again proceeded to excise the lesion with a rim of normal breast tissue around to ensure adequate margins. Once the specimen was completely excised it was oriented with surgical paints according to the spooler operator automatic's instructions. The specimen was then placed in the Faxitron to confirm the tumor, biopsy clip and Mag seed were located within the specimen. The specimen was then sent to pathology as a fresh specimen. An additional posterior margin was excised and sent to pathology as a fresh specimen after he was oriented with surgical paints. Once the radiographic confirmation was received, the wound was irrigated with saline and hemostasis was assured. The deep dermal layer was approximated using interrupted 3-0 vicryl followed by 4-0 monocryl for the skin. Dermabond was applied followed by a surgical bra. Patient was awoken from anesthesia and taken to the recovery area in stable condition. All needles, instruments and sponge counts were correct as reported by the operating room staff. Patient tolerated the procedure well with no immediate complications. Estimated Blood Loss 5 Drains No Pathology Yes Complications N
--- NOTE | 2023-12-04 14:39 | SUR.PHASEII ---
Vital signs stable, IV removed, patient is dressed and waiting for ride home.
== END 2023-12-04 14:51 | disposition home or self-care (01) ==
PROVIDERS: PCP Nurse Practitioner Family; Visit Provider Surgery
PROC: (CPT 19301; principal; 2023-12-04 11:00)
DX: C50.411 Malignant neoplasm of upper-outer quadrant of right female breast (principal); Z17.0 Estrogen receptor positive status [ER+]; N60.11 Diffuse cystic mastopathy of right breast; I10 Essential (primary) hypertension; E78.2 Mixed hyperlipidemia; Z79.82 Long term (current) use of aspirin; Z98.890 Other specified postprocedural states; Z86.79 Personal history of other diseases of the circulatory system; Z87.891 Personal history of nicotine dependence; Z82.49 Family history of ischemic heart disease and other diseases of the circulatory system
CPT/HCPCS: 19301; 19125; 76098; 88307; 93005; A9270; J0690; J3010; J7120; Q9968

== ENCOUNTER 2023-12-13 09:19 | Outpatient (CLI) | payer MEDICARE, SELFPAY ==
[2023-12-13 09:57] LABS: Hematocrit 39.5 % (37.0-47.0); Hemoglobin 13.3 g/dL (12.0-15.0); Mean Corpuscular HGB Conc 33.7 g/dl (32-36); Mean Corpuscular Hemoglobin 30.6 pg (26-34); Mean Platelet Volume 8.7 fl (7.4-10.4); Platelet Count Result 306 k/mm3 (150-375); Red Blood Count 4.34 M/mm3 (4.2-5.4); Red Cell Distribution Width 12.4 % (11.5-14.5); White Blood Count 8.5 K/mm3 (4.5-10.0)
[2023-12-13 10:08] LABS: Alanine Aminotransferase 24 U/L (6-35); Albumin Level 4.3 g/dL (3.5-5.1); Alkaline Phosphatase 146 U/L (38-126); Anion Gap 5 mmol/L (8-16); Aspartate Amino Transferase 28 U/L (14-36); Bilirubin,Total 0.5 mg/dL (0.2-1.3); Blood Urea Nitrogen 17 mg/dL (7-17); Carbon Dioxide 30 mmol/L (22-30); Chloride 100 mmol/L (98-107); Estimated Glomerular Filt Rate > 60; Glucose 102 mg/dL (65-110); Potassium 4.3 mmol/L (3.4-5.0); Sodium 135 mmol/L (137-145)
[2023-12-13 10:17] LABS: Hemoglobin A1C 6.4 % (<5.7)
[2023-12-13 10:38] LABS: Thyroid Stimulating Hormone 0.113 uIU/mL (0.465-4.680)
[2023-12-13 10:45] LABS: Free T4 Free Thyroxine 1.36 ng/mL (0.78-2.19)
[2023-12-16 04:13] LABS: Thyroid Peroxidase Antibodies <1 IU/mL (<9)
== END 2023-12-13 09:20 | disposition home or self-care (01) ==
LOC: ANHLAB 09:21
PROVIDERS: PCP Nurse Practitioner Family; Visit Provider Family Medicine
DX: E05.90 Thyrotoxicosis, unspecified without thyrotoxic crisis or storm (principal); E78.5 Hyperlipidemia, unspecified; I10 Essential (primary) hypertension; I87.2 Venous insufficiency (chronic) (peripheral); Z72.0 Tobacco use; R73.03 Prediabetes
CPT/HCPCS: 36415; 80053; 83036; 84439; 84443; 85027; 86376

== ENCOUNTER 2024-03-22 08:33 | Outpatient (CLI) | payer MEDICARE, SELFPAY ==
[2024-03-22 08:47] LABS: Basophils Percent Auto 0.6 % (0.2-1.2); Eosinophils Absolute Auto 0.1 K/mm3 (0-0.3); Eosinophils Percent Auto 2.3 % (0-4.4); Hematocrit 38.6 % (37.0-47.0); Hemoglobin 13.3 g/dL (12.0-15.0); Immature Granulocyte Absolute 0.01 K/mm3 (0.00-0.031); Immature Granulocyte Percent A 0.2 % (0-0.5); Lymphocytes Absolute Auto 1.05 K/mm3 (0.9-3.2); Lymphocytes Percent Auto 21.6 % (18.3-44.2); Mean Corpuscular HGB Conc 34.5 g/dl (32-36); Mean Corpuscular Hemoglobin 31.1 pg (26-34); Mean Corpuscular Volume 90.4 fl (80-100); Mean Platelet Volume 8.5 fl (7.4-10.4); Monocytes Absolute Auto 0.6 K/mm3 (0.1-0.6); Monocytes Percent Auto 11.3 % (2.6-8.5); Neutrophils Absolute Auto 3.1 K/mm3 (1.3-6.7); Platelet Count Result 225 k/mm3 (150-375); Red Blood Count 4.27 M/mm3 (4.2-5.4); Red Cell Distribution Width 12.3 % (11.5-14.5); White Blood Count 4.9 K/mm3 (4.5-10.0)
[2024-03-22 12:23] LABS: Alanine Aminotransferase 16 U/L (6-35); Albumin Level 4.8 g/dL (3.5-5.1); Alkaline Phosphatase 125 U/L (38-126); Anion Gap 6 mmol/L (4-12); Aspartate Amino Transferase 40 U/L (14-36); Bilirubin,Total 0.6 mg/dL (0.2-1.3); Blood Urea Nitrogen 16 mg/dL (7-17); Calcium 9.8 mg/dL (8.4-10.2); Carbon Dioxide 31 mmol/L (22-30); Chloride 99 mmol/L (98-107); Estimated Glomerular Filt Rate > 60; Glucose 98 mg/dL (65-110); Potassium 4.3 mmol/L (3.4-5.0); Sodium 136 mmol/L (137-145)
[2024-03-26 07:23] LABS: CA 15-3 18 U/mL (<32)
== END 2024-03-22 08:34 | disposition home or self-care (01) ==
LOC: ANHLAB 08:36
PROVIDERS: PCP Nurse Practitioner Family; Visit Provider Internal Medicine Hematology & Oncology
DX: C50.411 Malignant neoplasm of upper-outer quadrant of right female breast (principal); Z17.0 Estrogen receptor positive status [ER+]
CPT/HCPCS: 36415; 80053; 85025; 86300

== ENCOUNTER 2024-06-14 12:44 | Outpatient (CLI) | payer MEDICARE, SELFPAY ==
--- NOTE | ~2024-06-14 | DEXA_ITS ---
Bone Density Report Name: JESSICA KNAPP Age: 74 Sex: Female Ethnicity: White Date of : 1950 Indication: postmenopausal; screening for osteoporosis; height loss; cancer; Referring Provider: NAI LOREDO Study: Bone densitometry was performed. Exam Date: June 14, 2024 Accession number: [id number] Bone Density: Region BMD T-score Z-score Classification AP Spine(L1-L4) 1.074 0.2 2.7 Normal Femoral Neck (Left) 0.807 -0.4 1.8 Normal Total Hip (Left) 0.782 -1.3 0.5 Osteopenia Femoral Neck (Right) 0.838 -0.1 2.0 Normal Total Hip (Right) 0.813 -1.1 0.8 Osteopenia Total Hip Mean 0.797 -1.2 0.7 Osteopenia World Health Organization criteria for BMD impression classify patients as: Normal (T-score at or above -1.0), Osteopenia (T-score between -1.0 and -2.5), or Osteoporosis (T-score at or below -2.5). 10-year Fracture Risk(1): Major Osteoporotic Fracture 8.8% Hip Fracture 1.0% Reported Risk Factors: [place] (), Neck BMD=0.807, BMI=25.6 (1) FRAX(R) Version 3.08. Fracture probability calculated for an untreated patient. Fracture probability may be lower if the patient has received treatment. Clinical Information Provided by Patient: Has used the following medications: Vitamin D, Calcium Has the following medical conditions: Cancer Patient maximum height was 69 Menopause Age: 45 Onset of menses at age 9 Number of children 0 Impression: The patient has low bone mass, based on the Left Total Hip T-score. The patient has an estimated ten-year risk of hip fracture of 1% and an estimated ten-year risk of major fracture of 8.8%, based on the WHO FRAX algorithm. Discussion: BONE DENSITY IS LOW AT ONE OR MORE SKELETAL SITES. This patient's lowest T-score is low at one or more skeletal sites. It meets the World Health Organization's (WHO) criteria for ?low bone mass? (T-score between -1.0 and -2.5). The patient's 10-year risk of fracture as calculated by FRAX is less than the threshold where pharmacological therapy is recommended by the National Osteoporosis Foundation (NOF). However, all treatment decisions require clinical judgment and consideration of individual patient factors, including patient preferences, comorbidities, previous drug use, risk factors not captured in the FRAX model (e.g., frailty, falls, vitamin D deficiency, increased bone turnover, interval significant decline in bone density) and possible under or overestimation of fracture risk by FRAX. The patient should follow a healthful lifestyle (good nutrition with adequate calcium and vitamin D, and appropriate weight-bearing exercise). Follow-Up: Consider repeating this study in 2 to 3 years to reassess this patient's status, or sooner if there is some new clinical indication. Reported by:
== END 2024-06-14 12:45 | disposition home or self-care (01) ==
LOC: ANHIMG 12:45
PROVIDERS: PCP Nurse Practitioner Family; Visit Provider Internal Medicine Hematology & Oncology
DX: M85.852 Other specified disorders of bone density and structure, left thigh (principal); M85.851 Other specified disorders of bone density and structure, right thigh
CPT/HCPCS: 77080

== ENCOUNTER 2024-06-21 10:09 | Outpatient (CLI) | payer MEDICARE, SELFPAY ==
[2024-06-21 10:24] LABS: Basophils Percent Auto 0.6 % (0.2-1.2); Eosinophils Absolute Auto 0.1 K/mm3 (0-0.3); Hematocrit 39.7 % (37.0-47.0); Hemoglobin 13.5 g/dL (12.0-15.0); Immature Granulocyte Absolute 0.02 K/mm3 (0.00-0.031); Immature Granulocyte Percent A 0.4 % (0-0.5); Lymphocytes Absolute Auto 1.38 K/mm3 (0.9-3.2); Lymphocytes Percent Auto 25.7 % (18.3-44.2); Mean Corpuscular Hemoglobin 30.9 pg (26-34); Mean Corpuscular Volume 90.8 fl (80-100); Mean Platelet Volume 8.8 fl (7.4-10.4); Monocytes Absolute Auto 0.5 K/mm3 (0.1-0.6); Monocytes Percent Auto 9.5 % (2.6-8.5); Neutrophils Absolute Auto 3.3 K/mm3 (1.3-6.7); Neutrophils Percent Auto 61.8 % (45.5-73.1); Platelet Count Result 257 k/mm3 (150-375); Red Blood Count 4.37 M/mm3 (4.2-5.4); Red Cell Distribution Width 12.5 % (11.5-14.5); White Blood Count 5.4 K/mm3 (4.5-10.0)
[2024-06-21 13:32] LABS: Alanine Aminotransferase 16 U/L (6-35); Albumin Level 4.7 g/dL (3.5-5.1); Alkaline Phosphatase 113 U/L (38-126); Anion Gap 8 mmol/L (4-12); Aspartate Amino Transferase 25 U/L (14-36); Bilirubin,Total 0.4 mg/dL (0.2-1.3); Blood Urea Nitrogen 16 mg/dL (7-17); Calcium 9.7 mg/dL (8.4-10.2); Carbon Dioxide 29 mmol/L (22-30); Chloride 97 mmol/L (98-107); Estimated Glomerular Filt Rate > 60; Glucose 103 mg/dL (65-110); Potassium 4.4 mmol/L (3.4-5.0); Sodium 134 mmol/L (137-145)
[2024-06-22 11:38] LABS: CA 15-3 20 U/mL (<32)
== END 2024-06-21 10:10 | disposition home or self-care (01) ==
LOC: ANHLAB 10:11
PROVIDERS: PCP Nurse Practitioner Family; Visit Provider Internal Medicine Hematology & Oncology
DX: C50.411 Malignant neoplasm of upper-outer quadrant of right female breast (principal); Z17.0 Estrogen receptor positive status [ER+]
CPT/HCPCS: 36415; 80053; 85025; 86300

== ENCOUNTER 2024-09-16 12:19 | Outpatient (CLI) | payer MEDICARE, SELFPAY ==
--- NOTE | ~2024-09-16 | MM_ITS ---
EXAMINATION: MM diagnostic sami BI w kareem HISTORY: Invasive ductal carcinoma the right breast. Status post lumpectomy on 12/23. Status post radi ation therapy. TECHNIQUE: Additional 3-D tomosynthesis images of the breasts were performed and synthetic 2-D images were generated. CAD analysis was submitted and interpreted. COMPARISON: Comparison to multiple prior studies sequentially, with oldest reviewed study dated 07/02. BREAST PARENCHYMAL COMPOSITION: Dense: The breasts are heterogeneously dense, which may obscure small masses FINDINGS: There are lumpectomy changes in the upper outer quadrant of the right breast with associate d architectural distortion. Surrounding asymmetries are likely postsurgical change. No suspicious nicolasa cifications. The left breast is stable without evidence for malignancy. IMPRESSION: 1. Probable benign postsurgical changes in the upper outer quadrant of the right breast. 2. Recommend 6 month follow-up diagnostic right mammogram BI-RADS category 3, probably benign findings. Reviewed, dictated and finalized at location B. S ORDER SPECIALIST IMPRESSION: 1. Probable benign postsurgical changes in the upper outer quadrant of the righ t breast. 2. Recommend 6 month follow-up diagnostic right mammogram BI-RADS category 3, probably benign findings.
== END 2024-09-16 12:20 | disposition home or self-care (01) ==
LOC: ANHIMG 12:20
PROVIDERS: PCP Nurse Practitioner Family; Visit Provider Surgery
DX: C50.911 Malignant neoplasm of unspecified site of right female breast (principal); Z98.890 Other specified postprocedural states; R92.8 Other abnormal and inconclusive findings on diagnostic imaging of breast
CPT/HCPCS: 77062; 77066; G0279

== ENCOUNTER 2024-09-26 09:27 | Outpatient (CLI) | payer MEDICARE, SELFPAY ==
[2024-09-26 09:46] LABS: Basophils Percent Auto 0.4 % (0.2-1.2); Eosinophils Absolute Auto 0.1 K/mm3 (0-0.3); Eosinophils Percent Auto 1.5 % (0-4.4); Hematocrit 39.8 % (37.0-47.0); Hemoglobin 13.5 g/dL (12.0-15.0); Immature Granulocyte Absolute 0.01 K/mm3 (0.00-0.031); Immature Granulocyte Percent A 0.2 % (0-0.5); Lymphocytes Absolute Auto 1.37 K/mm3 (0.9-3.2); Lymphocytes Percent Auto 25.6 % (18.3-44.2); Mean Corpuscular HGB Conc 33.9 g/dl (32-36); Mean Corpuscular Hemoglobin 31.3 pg (26-34); Mean Corpuscular Volume 92.3 fl (80-100); Mean Platelet Volume 8.7 fl (7.4-10.4); Monocytes Absolute Auto 0.6 K/mm3 (0.1-0.6); Monocytes Percent Auto 11.4 % (2.6-8.5); Neutrophils Absolute Auto 3.3 K/mm3 (1.3-6.7); Neutrophils Percent Auto 60.9 % (45.5-73.1); Platelet Count Result 241 k/mm3 (150-375); Red Blood Count 4.31 M/mm3 (4.2-5.4); Red Cell Distribution Width 12.2 % (11.5-14.5); White Blood Count 5.4 K/mm3 (4.5-10.0)
[2024-09-26 11:13] LABS: Cholesterol 131 mg/dL (0-200); HDL Direct 62 mg/dL; Triglycerides 105 mg/dL (<150)
[2024-09-26 11:14] LABS: Alanine Aminotransferase 17 U/L (6-35); Albumin Level 4.4 g/dL (3.5-5.1); Alkaline Phosphatase 95 U/L (38-126); Anion Gap -1 mmol/L (4-12); Aspartate Amino Transferase 46 U/L (14-36); Bilirubin,Total 0.6 mg/dL (0.2-1.3); Blood Urea Nitrogen 19 mg/dL (7-17); Calcium 9.6 mg/dL (8.4-10.2); Carbon Dioxide 32 mmol/L (22-30); Chloride 102 mmol/L (98-107); Estimated Glomerular Filt Rate > 60; Glucose 102 mg/dL (65-110); Potassium 4.5 mmol/L (3.4-5.0); Sodium 133 mmol/L (137-145)
[2024-09-26 11:23] LABS: LDL Cholesterol Direct 41 mg/dL
[2024-09-26 11:31] LABS: Free T4 Free Thyroxine 1.39 ng/dL (0.78-2.19); Vitamin D 25 Hydroxy 48.1 ng/mL
[2024-09-26 11:43] LABS: Thyroid Stimulating Hormone 0.278 uIU/mL (0.465-4.680)
[2024-09-27 05:57] LABS: CA 15-3 15 U/mL (<32)
== END 2024-09-26 09:28 | disposition home or self-care (01) ==
LOC: ANHLAB 09:28
PROVIDERS: PCP Nurse Practitioner Family; Visit Provider Internal Medicine Hematology & Oncology
DX: E05.90 Thyrotoxicosis, unspecified without thyrotoxic crisis or storm (principal); E55.9 Vitamin D deficiency, unspecified; E78.5 Hyperlipidemia, unspecified
CPT/HCPCS: 36415; 80053; 80061; 82306; 84439; 84443; 85025; 86300

== ENCOUNTER 2025-02-10 08:57 | Outpatient (CLI) | payer MEDICARE, SELFPAY ==
--- OUTSIDE RECORDS SUMMARY | 2025-02-10 09:08 | XMS_ITS | Clinical Summary ---
Author Organization [facility] Address [address] [place] [address] Care Team Providers Care Industrial Sales Manager Name Role Phone Unavailable Primary Care Provider Unavailabl e Immunizations Immunization Administration Dates Next Due Covid-19, Mrna, Lnp-s, Pf, 30 Mcg/0.3 Ml Dose (P fizer) 07/30/2021 Social History Tobacco Use Types Packs/Day Years Used Date Smoking Tobacco: Never Assessed Comments Unknown Sex and Gender Information Value Date Recorded Sex Assigned at Not on file Legal Sex Female 12:04 PM CDT Gender Identity Not on file Sexual Orientation Not on file Plan of Treatment Health Maintenance Due Date Last Done Comments DEXA Bone Density 1950 Hepatitis C Virus (HCV) Screening 1950 TdaP Immunization 1950 Colonoscopy 1993 Colorectal Cancer Screening 1993 Cologuard 1998 Immunochemical Fecal Occult Blood 1998 Zoster Immunization (1 of 2) 1998 Pneumococcal Immunization (50+ years) (2 of 2 - PCV) 08/10/2019 08/10/2018 Respiratory Syncytial Virus (RSV) Immunization (Adult) (1 - 1-dose 75+ series) 2023 Influenza Immunization (#1) 2024 09/2 06/2021, 07/01/2020, 07/29/2018, Additional history exists SARS-COV-2 Immunization ( season) 2024 07/30/2021, 12/28/2020, 12/07/2020 Hepatitis B Immunization Aged Out No longer eligible based on patient's age to complete this topic Meningococcal Immunization (ACWY) Aged Out No longer eligible based on patient's age to complete this topic Rotavirus Immunization Aged Out No lo nger eligible based on patient's age to complete this topic
--- OUTSIDE RECORDS SUMMARY | 2025-02-10 09:08 | XMS_ITS | Clinical Summary ---
Author Organization [facility] [place] Address [address] [place] [address] Care Team Providers Care Millwright Instructor Name Role Phone Asa Cerda MD Primary Care Provider [phone] Allergies No known active allergies Medications Irbesartan (AVAPRO) 300 mg tablet Take 300 mg by mouth daily at bedtime. Active atorvastatin (LIPITOR) 10 mg tablet Take 10 mg by mouth daily. Active multivitamin (DAILY-NADEEM) tablet Take 1 Tablet by mouth daily. Active calcium as carbonate (OS-LUCI) 1,250 mg (500 mg elemental) tablet Take 1 Tablet by mouth daily. Active diltiaZEM (CARDIZEM CD) 240 mg Controlled Delivery 24 hour capsule Take 240 mg by mouth daily. Active aspirin (JIM) 325 mg tablet Take 325 mg by mouth daily. Active tamoxifen (NOLVADEX) 20 mg tablet Take 1 Tablet (20 mg) by mouth daily. 90 Tablet 3 07/05/2024 Active Active Problems No known active problems Encounters Date Type Department Care Team Description 12/18/2024 External Device Data [facility] Provider, Abstract 12/07/2024 External Device Data [facility]STRACTION Provider, Abstract 12/06/2024 External Device Data [facility] Provider, Abstract 12/04/2024 External Device Data [facility] Provider, Abstract 11/20/2024 External Device Data [facility] Provider, Abstract from Last 3 Months Family History Medical History Relation Name Comments Colon Cancer Brother 1 Heart Disease Brother 2 Heart Disease Father Relation Name Status Comments Brother 1 Alive Brother 2 Father Mother Sister 1 Alive Sister 2 Alive Social History Tobacco Use Types Packs/Day Years Used Date Smoking Tobacco: Former Cigarettes Smokeless Tobacco: Never Tobacco Cessation:Counseling Given: Not Answered Alcohol Use Standard Drinks/Week Comments Never 0 (1 standard drink = 0.6 oz pur e alcohol) Comments Unknown Sex and Gender Information Value Date Recorded Sex Assigned at Not on file Legal Sex Female 10:53 AM ORGANIC CHEMISTRY PROFESSOR Gender Identity Not on file Sexual Orientation Not on file Last Filed Vital Signs Vital Sign Reading Time Taken Comments Blood Pressure 141/74 10/18/2024 9:07 AM ORGANIC CHEMISTRY PROFESSOR Pulse 88 10/18/2024 9:01 AM ORGANIC CHEMISTRY PROFESSOR Temperature 36.8 C (98.3 F) 10/18/2024 9:01 AM ORGANIC CHEMISTRY PROFESSOR Respiratory Rate 15 10/18/2024 9:01 AM ORGANIC CHEMISTRY PROFESSOR Oxygen Saturation 94% 10/18/2024 9:01 AM ORGANIC CHEMISTRY PROFESSOR Inhaled Oxygen Concentration - - Weight 72.7 kg (160 lb 3.2 oz) 10/18/2024 9:01 A M ORGANIC CHEMISTRY PROFESSOR Height 172.7 cm (5' 8 ) 10/25/2023 9:29 AM ORGANIC CHEMISTRY PROFESSOR Body Mass Index 24.36 10/25/2023 9:29 AM ORGANIC CHEMISTRY PROFESSOR Plan of Treatment Upcoming Encounters Date Type Department Care Team (Late st Contact Info) Description 02/21/2025 11:15 AM CDT Office Visit [facility] Oncology and Hematology - [place]ared [address] [place] [address] Dave Mehta MD [address] [place] [address] Health Maintenance Due Date Last Done Comments DTAP/TDAP/TD VACCINES (1 - Tdap) 1967 PNEUMOCOCCAL VACCINE 50+ YEARS (1 of 1 - PCV) 05/19/19 98 ZOSTER VACCINE (1 of 2) 1998 OSTEOPOROSIS SCREENING 2013 RSV VACCINE (60+ or ) (1 - 1-dose 75+ series) 2023 INFLUENZA VACCINE (#1) 2024 COVID-19 Vaccine (2 - 2023- season) 2024 [place] Prev entative Visit/Annual Wellness Visit 10/02/2024 Insurance [facility] [id number] [place] [address] Care Teams Millwright Instructor Relationship Specialty Start Date End Date Asa Cerda MD [address] [place] [address] PCP - General Family Practice 10/20/23
[2025-02-10 09:25] LABS: Basophils Percent Auto 0.6 % (0.2-1.2); Eosinophils Absolute Auto 0.1 K/mm3 (0-0.3); Eosinophils Percent Auto 1.9 % (0-4.4); Hematocrit 41.2 % (37.0-47.0); Immature Granulocyte Absolute 0.01 K/mm3 (0.00-0.031); Immature Granulocyte Percent A 0.2 % (0-0.5); Lymphocytes Absolute Auto 1.34 K/mm3 (0.9-3.2); Lymphocytes Percent Auto 27.7 % (18.3-44.2); Mean Corpuscular Hemoglobin 31.3 pg (26-34); Mean Corpuscular Volume 92.2 fl (80-100); Monocytes Absolute Auto 0.6 K/mm3 (0.1-0.6); Neutrophils Absolute Auto 2.8 K/mm3 (1.3-6.7); Neutrophils Percent Auto 57.6 % (45.5-73.1); Platelet Count Result 213 k/mm3 (150-375); Red Blood Count 4.47 M/mm3 (4.2-5.4); Red Cell Distribution Width 12.3 % (11.5-14.5); White Blood Count 4.8 K/mm3 (4.5-10.0)
[2025-02-10 11:18] LABS: Cholesterol 137 mg/dL (0-200); HDL Direct 70 mg/dL; Triglycerides 113 mg/dL (<150)
[2025-02-10 11:26] LABS: Alanine Aminotransferase 20 U/L (6-35); Albumin Level 4.4 g/dL (3.5-5.1); Alkaline Phosphatase 86 U/L (38-126); Anion Gap 6 mmol/L (4-12); Aspartate Amino Transferase 34 U/L (14-36); Bilirubin,Total 0.5 mg/dL (0.2-1.3); Blood Urea Nitrogen 14 mg/dL (7-17); Calcium 9.4 mg/dL (8.4-10.2); Carbon Dioxide 30 mmol/L (22-30); Chloride 100 mmol/L (98-107); Estimated Glomerular Filt Rate > 60; Glucose 96 mg/dL (65-110); Potassium 4.5 mmol/L (3.4-5.0); Sodium 136 mmol/L (137-145)
[2025-02-10 11:28] LABS: LDL Cholesterol Direct 37 mg/dL
[2025-02-10 11:31] LABS: Free T4 Free Thyroxine 1.41 ng/dL (0.78-2.19); Vitamin D 25 Hydroxy 50.6 ng/mL
[2025-02-10 11:45] LABS: Thyroid Stimulating Hormone 0.284 uIU/mL (0.465-4.680)
[2025-02-10 11:59] LABS: Carcinoembryonic Antigen 3.4 ng/mL (0.0-3.0)
== END 2025-02-10 08:58 | disposition home or self-care (01) ==
LOC: ANHLAB 09:00
PROVIDERS: Internal Medicine Hematology & Oncology; PCP Nurse Practitioner Family; Visit Provider Nurse Practitioner Family
DX: C50.411 Malignant neoplasm of upper-outer quadrant of right female breast (principal); Z17.0 Estrogen receptor positive status [ER+]; I10 Essential (primary) hypertension; R73.03 Prediabetes; E78.5 Hyperlipidemia, unspecified; I87.2 Venous insufficiency (chronic) (peripheral); E05.90 Thyrotoxicosis, unspecified without thyrotoxic crisis or storm; E55.9 Vitamin D deficiency, unspecified
CPT/HCPCS: 36415; 80053; 80061; 82306; 82378; 84439; 84443; 85025

== ENCOUNTER 2025-02-26 09:11 | Outpatient (CLI) | payer MEDICARE, SELFPAY ==
--- OUTSIDE RECORDS SUMMARY | 2025-02-26 09:14 | XMS_ITS | Clinical Summary ---
Author Organization [facility] Address [address] [place] [address] Care Team Providers Care Cinder Pit Crane Operator Name Role Phone Unavailable Primary Care Provider [...]
--- OUTSIDE RECORDS SUMMARY | 2025-02-26 09:14 | XMS_ITS | Clinical Summary ---
Author Organization [facility] [place] Address [address] [place] [address] Care Team Providers Care Tying In Machine Operator Name Role Phone Asa Cerda MD Primary Care Provider [phone] Allergies No known active allergies Medications Irbesartan [...] Encounters Date Type Department Care Team Description 02/20/2025 External Device Data [facility] Provider, Abstract 02/19/2025 External Device Data [facility] Provider, Abstract 02/18/2025 External Device Data [facility] Provider, Abstract 02/12/2025 Orders Only [facility] Oncology and Hematology - Yared [address] [place] [address] Scanning, Provider 02/10/2025 Orders Only [facility] Oncology and Hematology - [place] [address] [place] [address] Dave Mehta MD 12/18/2024 External Device Data [facility]STRACTION Provider, [...] on file Legal Sex Female 10:53 AM APPEALS NURSE Gender Identity Not on file Sexual Orientation Not on file Last Filed Vital Signs Vital Sign Reading Time Taken Comments Blood Pressure 141/74 10/18/2024 9:07 AM APPEALS NURSE Pulse 88 10/18/2024 9:01 AM APPEALS NURSE Temperature 36.8 C (98.3 F) 10/18/2024 9:01 AM APPEALS NURSE Respiratory Rate 15 10/18/2024 9:01 AM APPEALS NURSE Oxygen Saturation 94% 10/18/2024 9:01 AM APPEALS NURSE Inhaled Oxygen Concentration - - Weight 72.7 kg (160 lb 3.2 oz) 10/18/2024 9:01 A M APPEALS NURSE Height 172.7 cm (5' 8) 10/25/2023 9:29 AM APPEALS NURSE Body Mass Index 24.36 10/25/2023 9:29 AM APPEALS NURSE Plan of Treatment Upcoming Encounters Date Type Department Care Team (Late st Contact Info) Description 03/14/2025 10:15 AM CDT Office Visit [facility] Oncology and Hematology - [place]ared [address] [place] [address] Dave Mehta MD [address] [place] [address] Health Maintenance Due Date Last Done Comments DTAP/TDAP/TD VACCINES (1 - Tdap) 1967 PNEUMOCOCCAL VACCINE 50+ YEARS (1 of 1 - PCV) 05/19/19 98 ZOSTER VACCINE (1 of 2) 1998 OSTEOPOROSIS SCREENING 2013 RSV VACCINE (60+ or ) (1 - 1-dose 75+ series) 2023 INFLUENZA VACCINE (#1) 2024 COVID-19 Vaccine (2 - season) 2024 [place] Prev entative Visit/Annual Wellness Visit 10/02/2024 Procedures Procedure Name Priority Date/Time Associated Diagnosis Comments CBC WITH DIFFERENTIAL Routine 02/10/2025 3:39 PM CDT TRIGLYCERIDE Routine 02/10/2025 2:16 PM CDT from Last 3 Months Results * CBC WITH DIFFERENTIAL (02/10/2025 3:39 PM CDT) Blood us Dave Mehta MD HEMATOLOGY ORDERABLES Final Res ult * TRIGLYCERIDE (02/10/2025 2:16 PM CDT) Blood us Provider Scanning CHEMISTRY ORDERABLES Final Res ult from Last 3 Months Insurance [facility] [id number] Care Teams Tying In Machine Operator Relationship Specialty Start Date End Date Asa Cerda MD [address] [place] [address] PCP - General Family Practice 10/20/23
[2025-02-26 09:33] LABS: Basophils Percent Auto 0.6 % (0.2-1.2); Eosinophils Absolute Auto 0.1 K/mm3 (0-0.3); Eosinophils Percent Auto 1.2 % (0-4.4); Hematocrit 39.9 % (37.0-47.0); Hemoglobin 13.6 g/dL (12.0-15.0); Immature Granulocyte Absolute 0.01 K/mm3 (0.00-0.031); Immature Granulocyte Percent A 0.2 % (0-0.5); Lymphocytes Absolute Auto 1.41 K/mm3 (0.9-3.2); Lymphocytes Percent Auto 27.1 % (18.3-44.2); Mean Corpuscular HGB Conc 34.1 g/dl (32-36); Mean Corpuscular Hemoglobin 31.5 pg (26-34); Mean Corpuscular Volume 92.4 fl (80-100); Mean Platelet Volume 8.8 fl (7.4-10.4); Monocytes Absolute Auto 0.5 K/mm3 (0.1-0.6); Monocytes Percent Auto 9.2 % (2.6-8.5); Neutrophils Absolute Auto 3.2 K/mm3 (1.3-6.7); Neutrophils Percent Auto 61.7 % (45.5-73.1); Platelet Count Result 221 k/mm3 (150-375); Red Blood Count 4.32 M/mm3 (4.2-5.4); Red Cell Distribution Width 12.3 % (11.5-14.5); White Blood Count 5.2 K/mm3 (4.5-10.0)
[2025-02-26 10:53] LABS: Alanine Aminotransferase 17 U/L (6-35); Albumin Level 4.4 g/dL (3.5-5.1); Alkaline Phosphatase 67 U/L (38-126); Anion Gap 7 mmol/L (4-12); Aspartate Amino Transferase 35 U/L (14-36); Bilirubin,Total 0.3 mg/dL (0.2-1.3); Blood Urea Nitrogen 17 mg/dL (7-17); Calcium 9.3 mg/dL (8.4-10.2); Carbon Dioxide 32 mmol/L (22-30); Chloride 98 mmol/L (98-107); Estimated Glomerular Filt Rate > 60; Glucose 132 mg/dL (65-110); Potassium 4.1 mmol/L (3.4-5.0); Sodium 137 mmol/L (137-145)
[2025-02-28 02:03] LABS: CA 15-3 18 U/mL (<32)
== END 2025-02-26 09:12 | disposition home or self-care (01) ==
LOC: ANHLAB 09:12
PROVIDERS: PCP Nurse Practitioner Family; Visit Provider Internal Medicine Hematology & Oncology
DX: C50.411 Malignant neoplasm of upper-outer quadrant of right female breast (principal); Z17.0 Estrogen receptor positive status [ER+]
CPT/HCPCS: 36415; 80053; 85025; 86300

== ENCOUNTER 2025-03-03 11:17 | Outpatient (CLI) | payer MEDICARE, SELFPAY ==
--- NOTE | ~2025-03-03 | MM_ITS ---
EXAMINATION: MM diagnostic sami RT w kareem INDICATION: Short-term follow-up probably benign post treatment changes. History of Right lumpectomy with radiation therapy 12/23. COMPARISON: 09/16/2024 through 02/05/2021 TECHNIQUE: Digital Breast Tomosynthesis CC, MLO views were obtained of RIGHT breast with computer-aid ed detection to assist in interpretation of the study. FINDINGS: The breasts are heterogeneously dense, which may obscure small masses. Posttreatment changes in Right breast are stable. No new focal dominant mass, architectural distortion, or suspicious microcalcifications are identifie d. There are no features to suggest malignancy. IMPRESSION: 1. Stable benign mammogram. No evidence of malignancy in the right breast. 2. Recommend screening mammography BI-RADS 2, BENIGN Reviewed, dictated and finalized at location B.
--- OUTSIDE RECORDS SUMMARY | 2025-03-03 11:53 | XMS_ITS | Clinical Summary ---
Author Organization [facility] Mariely holland Linda Address [address] [place] [address] Care Team Providers Care Grab Jack Man Name Role Phone Asa Cerda MD Primary Care Provider [phone] Allergies No known active allergies Medications Irbesartan [...] Encounters Date Type Department Care Team Description 02/28/[address] [facility] Oncology and Hematology - [place] [address] [place] [address] Dave Mehta MD 02/20/2025 External Device Data STL ABSTRACTION Provider, Abstract 02/19/2025 External Device Data STL ABSTRACTION Provider, Abstract 02/18/2025 External Device Data STL ABSTRACTION Provider, Abstract 02/12/[address] [facility] Oncology and Hematology - [place] [address] [place] [address] Scanning, Provider 02/10/[address] [facility] Oncology and Hematology - [place] [address] [place] [address] Dave Mehta MD 12/18/2024 External [...] on file Legal Sex Female 10:53 AM STATIONARY ENGINEER Gender Identity Not on file Sexual Orientation Not on file Last Filed Vital Signs Vital Sign Reading Time Taken Comments Blood Pressure 141/74 10/18/2024 9:07 AM STATIONARY ENGINEER Pulse 88 10/18/2024 9:01 AM STATIONARY ENGINEER Temperature 36.8 C (98.3 F) 10/18/2024 9:01 AM STATIONARY ENGINEER Respiratory Rate 15 10/18/2024 9:01 AM STATIONARY ENGINEER Oxygen Saturation 94% 10/18/2024 9:01 AM STATIONARY ENGINEER Inhaled Oxygen Concentration - - Weight 72.7 kg (160 lb 3.2 oz) 10/18/2024 9:01 A M STATIONARY ENGINEER Height 172.7 cm (5' 8) 10/25/2023 9:29 AM STATIONARY ENGINEER Body Mass Index 24.36 10/25/2023 9:29 AM STATIONARY ENGINEER Plan of Treatment Upcoming Encounters Date Type Department Care Team (Late st Contact Info) Description 03/14/2025 10:15 AM CDT Office Visit [facility] Oncology and Hematology [facility] [address] [place] [address] Dave Mehta MD [address] [place] [address] Health Maintenance Due Date Last Done Comments DTAP/TDAP/TD VACCINES (1 - Tdap) 1967 PNEUMOCOCCAL VACCINE 50+ YEARS (1 of 1 - PCV) 05/19/19 98 ZOSTER VACCINE (1 of 2) 1998 OSTEOPOROSIS SCREENING 2013 RSV VACCINE (60+ or ) (1 - 1-dose 75+ series) 2023 INFLUENZA VACCINE (#1) 2024 COVID-19 Vaccine (2 - season) 2024 Procedures Procedure Name Priority Date/Time Associated Diagnosis Comments CANCER ANTIGEN 15-3 Routine 02/26/2025 12:34 PM CDT CBC WITH DIFFERENTIAL Routine 02/10/2025 3:39 PM CDT TRIGLYCERIDE Routine 02/10/2025 2:16 PM CDT from Last 3 Months Results * CANCER ANTIGEN 15-3 (02/26/2025 12:34 PM CDT) Blood Dave Mehta MD CHEMISTRY ORDERABLES Final Resu lt * CBC WITH DIFFERENTIAL (02/10/2025 3:39 PM CDT) Blood Dave Mehta MD HEMATOLOGY ORDERABLES Final Res ult * TRIGLYCERIDE (02/10/2025 2:16 PM CDT) Blood Provider Scanning CHEMISTRY ORDERABLES Final Res ult from Last 3 Months Insurance [facility] [id number] [place] [id number] Care Teams Grab Jack Man Relationship Specialty Start Date End Date Asa Cerda MD [address] [place] [address] PCP - General Family Practice 10/20/23
--- OUTSIDE RECORDS SUMMARY | 2025-03-03 11:53 | XMS_ITS | Encounter Summary ---
Author Organization [facility] [email or web address] Address [address] [place] [address] Care Team Providers Care Watchstander Name Role Phone Asa Cerda MD Primary Care Provider [phone] Encounter Details Date Type Department Care Team ([facility] Contact Info) Description 02/28/2025 Orders Only [facility] Oncology and Hematology [facility] [address] [place] [address] [place] [address] [place] [address] [employer] 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 Gender Identity Not on file Sexual Orientation Not on file documented as of this encounter Plan of Treatment Upcoming Encounters Date Type Department Care Team (Late Contact Info) Description 03/14/2025 10:15 AM CDT Office Visit [facility] Oncology and Hematology [facility] [address] [place] [address] Dave Mehta MD [address] [employer] [address] [place] [address] documented as of this encounter Procedures Procedure Name Priority Date/Time Associated Diagnosis Comments CANCER ANTIGEN 15-3 Routine 02/26/2025 12:34 PM CDT documented in this encounter Results * CANCER ANTIGEN 15-3 (02/26/2025 12:34 PM CDT) Blood Dave Mehta MD CHEMISTRY ORDERABLES Final Resu lt documented in this encounter Visit Diagnoses Not on filedocumented in this encounter Care Teams Watchstander Relationship Specialty Start Date End Date Asa Cerda MD [address] [facility] [place] [phone] PCP - General Family Practice 10/20/23 documented as of this encounter
--- OUTSIDE RECORDS SUMMARY | 2025-03-03 11:53 | XMS_ITS | Clinical Summary ---
Author Organization [facility] Address [address] [place] [address] Care Team Providers Care Dental Associate Name Role Phone Unavailable Primary Care Provider [...]
== END 2025-03-03 11:18 | disposition home or self-care (01) ==
PROVIDERS: PCP Nurse Practitioner Family; Visit Provider Physician Assistant Surgical
DX: Z98.890 Other specified postprocedural states (principal); C50.911 Malignant neoplasm of unspecified site of right female breast; R92.8 Other abnormal and inconclusive findings on diagnostic imaging of breast
CPT/HCPCS: 77061; 77065; G0279

== ENCOUNTER 2025-03-28 12:44 | Outpatient (CLI) | payer MEDICARE, SELFPAY ==
--- NOTE | ~2025-03-28 | US_ITS ---
US soft tissue UE LT Ordering provider: Tara Yousif APRN History: . lesion LT dorsal hand . TECHNIQUE: Ultrasound evaluation for the area of concern. Doppler sampling is also obtained. Comparison: None. FINDINGS/impression: Hypoechoic area is seen measuring 0.8 x 0.3 x 0.8 on the dorsum of the left hand which may indicate g anglion cyst. Abscess or mass cannot be excluded. Clinical correlation advised. Reviewed, dictated and finalized at location A.
== END 2025-03-28 12:45 | disposition home or self-care (01) ==
LOC: MICIMG 12:45
PROVIDERS: PCP Nurse Practitioner Family; Visit Provider Nurse Practitioner Family
DX: M67.442 Ganglion, left hand (principal)
CPT/HCPCS: 76882

== ENCOUNTER → 2025-04-22 14:01 | Outpatient (REF) | payer MEDICARE, SELFPAY ==
--- NOTE | 2025-04-22 14:01 | S_PTH ---
PATIENT: Priscilla Mccollum LOC: [facility] U#:[id number] AGE/SX: 75/F ROOM: RE04/22/[address]: Tanya Morales PA-C : 1950 BED: DIS: SPEC #: [id number] RECD: 04/23/25 06:54 STATUS: YARY RENatasha #: [id number] ALEYDA: 04/22/25 14:[address]: Tanya Morales DEPT: [facility] Surgical RECD BY: Neris Hathaway ENTERED: 04/23/25 06:54 SP TYPE: Surgical OTHR DR: Tara Yousif APRN Tissues: A - Skin Procedures: Hematoxylin and Eosin Stain Gross and Microscopic Level 4
--- OUTSIDE RECORDS SUMMARY | 2025-04-22 14:05 | XMS_ITS | Clinical Summary ---
Author Organization [facility] Address [address] [place] [address] Care Team Providers Care Counter Top Assembler Name Role Phone Unavailable Primary Care Provider [...]
== END ==
LOC: ANHLAB 14:01
PROVIDERS: PCP Nurse Practitioner Family; Visit Provider Physician Assistant Surgical
DX: C44.629 Squamous cell carcinoma of skin of left upper limb, including shoulder (principal)
CPT/HCPCS: 88305

== ENCOUNTER 2025-07-09 08:52 | Outpatient (CLI) | payer MEDICARE, SELFPAY ==
[2025-07-09 09:22] LABS: Hematocrit 40.5 % (37.0-47.0); Hemoglobin 13.6 g/dL (12.0-15.0); Immature Granulocyte Percent A 0.2 % (0-0.5); Lymphocytes Absolute Auto 1.41 K/mm3 (0.9-3.2); Mean Corpuscular HGB Conc 33.6 g/dl (32-36); Mean Corpuscular Hemoglobin 31.1 pg (26-34); Mean Corpuscular Volume 92.5 fl (80-100); Nucleated Red Blood Cells Absolute Auto 0.000 K/mm3 (0.0-0.012); Nucleated Red Blood Cells Perc 0.0 % (0.0-0.2); Platelet Count Result 227 k/mm3 (150-375); Red Blood Count 4.38 M/mm3 (4.2-5.4); White Blood Count 4.7 K/mm3 (4.5-10.0)
[2025-07-09 10:01] LABS: Hemoglobin A1C 6.1 % (<5.7)
[2025-07-09 10:05] LABS: Alanine Aminotransferase 15 U/L (6-35); Albumin Level 4.4 g/dL (3.5-5.1); Alkaline Phosphatase 83 U/L (38-126); Anion Gap 6 mmol/L (4-12); Aspartate Amino Transferase 28 U/L (14-36); Bilirubin,Total 0.5 mg/dL (0.2-1.3); Blood Urea Nitrogen 15 mg/dL (7-17); Calcium 9.6 mg/dL (8.4-10.2); Carbon Dioxide 30 mmol/L (22-30); Chloride 99 mmol/L (98-107); Estimated Glomerular Filt Rate > 60; Glucose 103 mg/dL (65-110); Potassium 4.8 mmol/L (3.4-5.0); Sodium 135 mmol/L (137-145); Total Protein 7.5 g/dL (6.3-8.2)
== END 2025-07-09 08:53 | disposition home or self-care (01) ==
LOC: ANHLAB 08:53
PROVIDERS: PCP Nurse Practitioner Family; Visit Provider Internal Medicine Hematology & Oncology
DX: C50.411 Malignant neoplasm of upper-outer quadrant of right female breast (principal); Z17.0 Estrogen receptor positive status [ER+]; R73.03 Prediabetes
CPT/HCPCS: 36415; 80053; 83036; 85025; 86300

== ENCOUNTER 2025-09-10 09:40 | Outpatient (CLI) | payer MEDICARE, SELFPAY ==
--- NOTE | ~2025-09-10 | MM_ITS ---
EXAMINATION: MM screening sami BI w kareem HISTORY: Screening. Right lumpectomy/partial mastectomy TECHNIQUE: Craniocaudal and mediolateral oblique 3-D tomosynthesis images were obtained and synthetic 2-D images were generated. CAD analysis was submitted and interpreted. COMPARISON: March 03, 2025. 2023, 2022, and 2021. BREAST PARENCHYMAL COMPOSITION: Dense: The breasts are heterogeneously dense FINDINGS: No suspicious masses are seen. There are no suspicious calcifications. There are postoperative changes on the right. No unexplained architectural distortion is seen. There is skin thickening in the right, consistent with radiation therapy. There is no adenopathy seen on the images submitted. IMPRESSION: No mammographic evidence to suggest malignancy is seen. The patient may return to screening mammography as per ACR guidelines. BI-RADS 2 - Benign. Reviewed, dictated and finalized at location C. ESS MANAGER
== END 2025-09-10 09:41 | disposition home or self-care (01) ==
LOC: ANHFOHIMG 09:40
PROVIDERS: PCP Nurse Practitioner Family; Visit Provider Surgery
DX: Z12.31 Encounter for screening mammogram for malignant neoplasm of breast (principal)
CPT/HCPCS: 77063; 77067